=== PATIENT | female | born 1960 | race Hispanic/Latino ===

== ENCOUNTER 2016-07-27 19:38 | Inpatient (IN) | payer BC ==
[~2016-07-27] VITALS: Ht 149.9 cm; Wt 93.0 kg
[~2016-07-27 19:38] MED LIST: LOPRESSOR 550 MG/TAB PO; METOPROLOL TAR100 MG PO
--- NOTE | 2016-07-27 19:42 | NUR ---
PT. AMBULATORY WITH STEADY GAIT TO TREATMENT ROOM.
--- NOTE | 2016-07-27 20:20 | NUR ---
WARM BLANKET GIVEN, PT STATES SHE CANT URINATE YET. RESTING QUIETLY ON STRETCHER, FAMILY AT BEDSIDE.
[2016-07-27 20:37] LABS: HEMATOCRIT 35.5 % (37.0-47.0); HEMOGLOBIN 10.3 g/dl (12.0-16.0); IMMATURE GRANULOCYTES 1.1 % (0.0-1.0); MEAN CORPUSCULAR HGB 18.9 pG CALC (26.0-32.0); NEUT# 25.84 thou/uL (2.00-7.15); RED BLOOD COUNT 5.46 mill/uL (4.20-5.60); RED CELL DISTRI WIDTH 19.1 % (11.5-15.5)
[2016-07-27 20:46] LABS: ALBUMIN 4.7 g/dL (3.2-5.0); ALKALINE PHOSPHATASE 95 u/l (38-126); AMYLASE 54 u/l (30-110); ANION GAP 21 (6-22 (CALC)); BILIRUBIN, TOTAL 0.8 mg/dL (0.0-1.4); BUN 10 mg/dL (7-17); BUN/CREATININE RATIO 14 (12-20 (CALC)); CALCIUM 9.7 mg/dL (8.4-10.2); CARBON DIOXIDE 26 mmol/l (22-30); CHLORIDE 95 mmol/l (95-108); CREATININE 0.7 mg/dL (0.5-1.0); GFR > 60 ML/MIN (>=60 (CALC)); GFR FOR AFR.AMER. > 60 ML/MIN (>=60 (CALC)); GLUCOSE 142 mg/dL (65-105); LIPASE 65 u/l (23-300); SGOT/AST 25 u/l (14-36); SGPT/ALT 22 u/l (9-52); SODIUM 138 mmol/l (137-146); TOTAL PROTEIN 9.1 g/dL (6.3-8.2)
[2016-07-27 20:53] LABS: INFLUENZA A NONE DETECTED (NONE DETECT); INFLUENZA B NONE DETECTED (NONE DETECT)
[2016-07-27 20:58] LABS: MYOGLOBIN 20 ng/mL (0 - 62)
--- NOTE | 2016-07-27 21:27 | NUR ---
FLUIDS INFUSING, PT SITTING ON STRETCHER, NO SEVERE DISTRESS NOTED. VITAL SIGNS STABLE
--- NOTE | 2016-07-27 22:00 | NUR ---
TOOK OVER PT CARE FROM JOSEPH VILLANUEVA. PT'S B/P AND HEART RATE STILL ELEVATED 190/87, 113. DR BOONE INFORMED DUE TO PT RECEIVING LITERS OF FLUID FOR SEPSIS.
[2016-07-27 22:16] LABS: URINE BILIRUBIN - DIPSTICK NEGATIVE (NEGATIVE); URINE BLOOD DIPSTICK SMALL (NEGATIVE); URINE CLARITY CLEAR; URINE COLOR YELLOW; URINE GLUCOSE - DIPSTICK NEGATIVE (NEGATIVE); URINE KETONE NEGATIVE (NEGATIVE); URINE LEUK ESTERASE NEGATIVE (NEGATIVE); URINE NITRITE - DIPSTICK NEGATIVE (Negative); URINE PROTEIN - DIPSTICK NEGATIVE (NEG-TRACE); URINE UROBILINOGEN - DIPSTICK 0.2 E.U./dL (0.2)
[2016-07-27 22:24] LABS: URINE SQUAMOUS EPITHELIAL CELL FEW EPI/hpf (0-FEW); URINE WBC 0-2 WBC/hpf (0-5)
--- NOTE | 2016-07-27 23:00 | NUR ---
PT'S RATE DOWN TO 110 AND B/P 185/81.
--- NOTE | 2016-07-27 23:12 | NUR ---
DR BOONE IN TO GO OVER RESULTS AND PLAN OF ADMISSION.
--- NOTE | 2016-07-28 | NUR ---
PT'S HEART RATE DOWN TO 92 BUT B/P STILL 186/82. DR BOONE INFORMED.
--- NOTE | 2016-07-28 00:35 | NUR ---
MEDICATED WITH CATAPRES AND 3RD LITER OF SALINE UP
--- NOTE | 2016-07-28 01:10 | NUR ---
GAVE REPORT TO JOSEPH MEZA AND CHECKED PT'S TEMP 101.1, INFORMED DR BOONE AND ORDER FOR TYLENOL AND MOTRIN RECEIVED.,
--- NOTE | 2016-07-28 01:30 | NUR ---
Admission Note Report Given to: SUSANA Transported by: X Wheelchair Stretcher Transported with: X Nurse Transporter X Patent IV O2 X Document Improvement Specialist
[2016-07-28 01:35] VITALS: BP 150/88
--- NOTE | 2016-07-28 01:35 | NUR ---
PATIENT ARRIVED TO FLOOR VIA WHEEL CHAIR ACCOMPANIED BY NURSE AND SPOUSE. PATIENT SETTLED TO ROOM. PATIENT ORIENTED TO ROOM AND CALL SYSTEM, DENIES PAIN IV FLUID BOLUS IN PROGRESS VIA PUMP.
[2016-07-28 03:54] VITALS: BP 123/68
--- NOTE | 2016-07-28 04:00 | NUR ---
PATIENT RESTING QUIETLY IN BED WITH EYES CLOSED. NO ACUTE CHANGES NOTED IN PATIENT'S CONDITION.
[2016-07-28 05:25] LABS: HEMATOCRIT 27.8 % (37.0-47.0); HEMOGLOBIN 8.1 g/dl (12.0-16.0); IMMATURE GRANULOCYTES 0.4 % (0.0-1.0); MEAN CELL VOLUME 65.7 fL CALC (80.0-100.0); MEAN CORPUSCULAR HGB 19.1 pG CALC (26.0-32.0); MEAN CORPUSCULAR HGB CONC 29.1 g/L CALC (32.0-36.0); NEUT# 12.78 thou/uL (2.00-7.15); RED BLOOD COUNT 4.23 mill/uL (4.20-5.60); RED CELL DISTRI WIDTH 18.5 % (11.5-15.5)
[2016-07-28 05:48] LABS: ALBUMIN 3.1 g/dL (3.2-5.0); ALKALINE PHOSPHATASE 73 u/l (38-126); ANION GAP 14 (6-22 (CALC)); BILIRUBIN, TOTAL 0.5 mg/dL (0.0-1.4); BUN 8 mg/dL (7-17); BUN/CREATININE RATIO 13 (12-20 (CALC)); CALCIUM 8.3 mg/dL (8.4-10.2); CARBON DIOXIDE 24 mmol/l (22-30); CHLORIDE 106 mmol/l (95-108); CREATININE 0.6 mg/dL (0.5-1.0); GFR > 60 ML/MIN (>=60 (CALC)); GFR FOR AFR.AMER. > 60 ML/MIN (>=60 (CALC)); GLUCOSE 101 mg/dL (65-105); POTASSIUM 3.7 mmol/l (3.5-5.1); SGOT/AST 14 u/l (14-36); SGPT/ALT 25 u/l (9-52); SODIUM 140 mmol/l (137-146); TOTAL PROTEIN 6.4 g/dL (6.3-8.2)
--- NOTE | 2016-07-28 07:11 | NUR ---
BEDSIDE REPORT RECEIVED FROM JOSEPH MEZA. PT SITTING UPRIGHT IN BED. DENIES PAIN. REPORTING OF CONCERNS ENCOURAGED. PLAN OF CARE DISCUSSED. CALL LIGHT REVIEWED AND IN REACH. PT STATES UNDERSTANDING.
[2016-07-28] MEDS ORDERED: LEVAQUIN500 MG PO (07:39)
[2016-07-28 07:56] VITALS: BP 144/59
--- NOTE | 2016-07-28 09:04 | NUR ---
Discharge instructions given. Patient verbalizes understanding of same. Discharged in stable condition via Wheelchair to Home with spouse. All belongings sent with pt.
== END 2016-07-28 09:06 | disposition home or self-care (01) | DRG 392 ==
LOC: ENPENDDIS → ED 19:38 → ED-I 23:15 → ED 23:25 → MS2 23:26
PROVIDERS: Emergency Medicine; ADMIT Internal Medicine; ATTEND Internal Medicine
DX: R10.31 Right lower quadrant pain (principal); I10 Essential (primary) hypertension; R10.32 Left lower quadrant pain; D25.9 Leiomyoma of uterus, unspecified; R50.9 Fever, unspecified; D72.829 Elevated white blood cell count, unspecified; N92.6 Irregular menstruation, unspecified; D64.9 Anemia, unspecified
CPT/HCPCS: J1956

== ENCOUNTER 2021-03-03 22:39 | Emergency (ER) | payer SELFPAY ==
[~2021-03-03] VITALS: Ht 30.5 cm; Wt 41.7 kg
[~2021-03-03 22:39] MED LIST changes: +LEVAQUIN500 MG PO
[2021-03-04 00:19] LABS: IMMATURE GRANULOCYTES 0.1 % (0.0-5.0); MEAN CORPUSCULAR HGB 26.6 pG CALC (26.0-32.0); MEAN CORPUSCULAR HGB CONC 32.5 g/dL CAL (32.0-36.0); NEUT# 4.53 thou/uL (2.00-7.15); RED BLOOD COUNT 5.95 mill/uL (4.20-5.60); RED CELL DISTRI WIDTH 14.2 % (11.5-15.5)
[2021-03-04 00:20] LABS: ALBUMIN 4.7 g/dL (3.2-5.0); ALKALINE PHOSPHATASE 127 u/l (38-126); ANION GAP 17 (6-22 (CALC)); BILIRUBIN, TOTAL 0.8 mg/dL (0.0-1.4); BUN 11 mg/dL (7-17); BUN/CREATININE RATIO 16 (12-20 (CALC)); CARBON DIOXIDE 28 mmol/l (22-30); CHLORIDE 99 mmol/l (95-108); CREATININE 0.7 mg/dL (0.5-1.0); GFR > 60 ML/MIN (>=60 (CALC)); GFR FOR AFR.AMER. > 60 ML/MIN (>=60 (CALC)); MAGNESIUM 1.8 mg/dL (1.6-2.3); POTASSIUM 3.9 mmol/l (3.5-5.1); SGOT/AST 36 u/l (14-36); SODIUM 140 mmol/l (137-146)
[2021-03-04 00:24] LABS: ACT PARTIAL THROMBO TIME 21.4 SECONDS (20.0-32.5); PROTHROMBIN TIME 10.2 SECONDS (9.0-12.5)
[2021-03-04 00:26] LABS: HEMATOCRIT 48.6 % (37.0-47.0); HEMOGLOBIN 15.8 g/dl (12.0-16.0); MEAN CELL VOLUME 81.7 fL CALC (80.0-100.0)
[2021-03-04 00:32] LABS: MYOGLOBIN 22 ng/mL (0 - 62)
[2021-03-04 00:50] LABS: TSH, 3RD GENERATION 2.02 uIU/mL (0.47 - 4.68)
[2021-03-04 01:43] LABS: URINE BILIRUBIN - DIPSTICK NEGATIVE (NEGATIVE); URINE BLOOD DIPSTICK SMALL (NEGATIVE); URINE COLOR YELLOW; URINE GLUCOSE - DIPSTICK NEGATIVE (NEGATIVE); URINE KETONE 15 mg/dL (NEGATIVE); URINE LEUK ESTERASE NEGATIVE (NEGATIVE); URINE PH 6.5 (4.5-8.0); URINE PROTEIN - DIPSTICK NEGATIVE (NEG-TRACE); URINE SPECIFIC GRAVITY 1.015; URINE UROBILINOGEN - DIPSTICK 0.2 E.U./dL (0.2)
[2021-03-04 01:46] LABS: URINE NITRITE - DIPSTICK NEGATIVE (Negative)
[2021-03-04 01:55] LABS: URINE SQUAMOUS EPITHELIAL CELL MANY EPI/hpf (0-FEW); URINE WBC 0-2 WBC/hpf (0-5)
[2021-03-04 01:57] LABS: URINE RENAL EPITHELIAL CELLS FEW hpf
[2021-03-04] MEDS ORDERED: AMLODIPINE BESYL5 MG PO (02:10)
[2021-03-04 02:11] VITALS: BP 132/58
== END 2021-03-04 02:11 | disposition home or self-care (01) | DRG 948 ==
LOC: ED 22:39
PROVIDERS: Family Medicine
DX: R53.1 Weakness (principal); I10 Essential (primary) hypertension